=== PATIENT | female | born 1940 | race Caucasian/White ===

== ENCOUNTER 2020-01-15 12:45 | Outpatient (CLI) | payer MEDICARE, MEDICAID, SELFPAY ==
--- NOTE | 2020-01-15 12:56 | CT_ITS ---
WS: [id number] CT ABDOMEN PELVIS TECHNIQUE: Noncontrast CT of the abdomen and pelvis with coronal and sagittal reformatted images. CLINICAL INFORMATION: GENERALIZED ABDOMINAL PAIN, NAUSEA, GASTROENTERITIS/COLLITIS COMPARISON: CT September 22, 2017 DLP: 1143.[address] scans at [facility] use at least one of these dose optimization techniques: automat ed exposure control; mA and/or kV adjustment per patient size (includes targeted exams where dose is matched to clinical indication); or iterative reconstruction. FINDINGS: Prior postoperative changes cholecystectomy. Prior appendectomy. Noncontrast liver is normal. Normal GE junction. Tiny esophageal hiatal hernia. Proximal small bowel appears normal. Splenic artery calci fication. Noncontrast spleen is normal. Lung bases are well aerated. Right adrenal adenoma measuring 15 mm. Left adrenal gland is normal. No hydronephrosis. Right renal atrophy with small low-attenuation exophytic lesion may represent hemo rrhagic renal cyst but indeterminant. This is new or increased in size since 2018. This measures 7 mm . No obstructing renal or ureteral calculi. No hydronephrosis.A few tiny nonobstructing left calyceal tip calculi. Normal caliber abdominal aorta. Dense aortic calcification. Dense calcification involving the celiac and SMA origins. Bilateral proximal renal artery calcification. Infrarenal abdominal aorta and biilia c stents. Increasing calcified atheromatous disease at the proximal margin of the stent at the level the renal arteries with increasing stenosis. This can be further evaluated with CTA or angiography. No periaortic lymphadenopathy. No evidence of small or large bowel obstruction. Prior appendectomy cl ips. No inguinal lymphadenopathy. No pelvic lymphadenopathy. Slight anterolisthesis L4 on L5.Prior tubal ligation CT/CT abdomen pelvis wo con [id number] IMPRESSION: 1. No adenopathy in the abdomen or pelvis. 2. Right renal cortical atrophy with indeterminant 7 mm renal lesion may repre sent hemorrhagic renal cyst but technically indeterminate and new or increased in size since 2018. This can be followed up with ultrasound. 3. 15 mm right adrenal adenoma. 4. Advanced vascular calcification with moderate to severe narrowing of the ab dominal aorta at the level of the renal arteries just above the aortoiliac sten t. This appears increased. 5. Dense mesenteric artery and renal artery origin calcification. 6. Prior cholecystectomy and tubal ligation. 7. Small esophageal hiatal hernia.
== END 2020-01-15 12:46 | disposition home or self-care (01) ==
LOC: RADWPI 12:52
PROVIDERS: Family Provider Nurse Practitioner; PCP Nurse Practitioner; Visit Provider Nurse Practitioner
DX: R10.84 Generalized abdominal pain (principal); R11.0 Nausea; K52.9 Noninfective gastroenteritis and colitis, unspecified; N26.1 Atrophy of kidney (terminal); D35.01 Benign neoplasm of right adrenal gland; K44.9 Diaphragmatic hernia without obstruction or gangrene
CPT/HCPCS: 74176

== ENCOUNTER 2020-11-26 10:19 | Outpatient (CLI) | payer MEDICARE, MEDICAID, SELFPAY ==
[2020-11-26 11:56] LABS: Anion Gap 15.6 (5-19); Blood Urea Nitrogen 41 mg/dL (8-23); Calcium 7.3 mg/dL (8.5-10.5); Carbon Dioxide 21 mmol/L (22-29); Chloride 103 mmol/L (98-107); Glucose 81 mg/dL (65-115); Osmolality Calculated 287 mOsm/kg (285-295); Potassium 5.6 mmol/L (3.5-5.1); Sodium 134 mmol/L (136-145)
== END 2020-11-26 10:20 | disposition home or self-care (01) ==
PROVIDERS: PCP Nurse Practitioner; Visit Provider Family Medicine
DX: I50.43 Acute on chronic combined systolic (congestive) and diastolic (congestive) heart failure (principal)
CPT/HCPCS: 80048; 83880

== ENCOUNTER 2020-12-02 08:50 | Outpatient (CLI) | payer MEDICARE, MEDICAID, SELFPAY ==
[2020-12-02 09:40] LABS: Anion Gap 14.6 (5-19); Blood Urea Nitrogen 44 mg/dL (8-23); Calcium 7.3 mg/dL (8.5-10.5); Carbon Dioxide 21 mmol/L (22-29); Chloride 105 mmol/L (98-107); Glucose 79 mg/dL (65-115); Osmolality Calculated 292 mOsm/kg (285-295); Potassium 4.6 mmol/L (3.5-5.1); Sodium 136 mmol/L (136-145)
== END 2020-12-02 08:51 | disposition home or self-care (01) ==
LOC: LAB 08:51
PROVIDERS: PCP Nurse Practitioner; Visit Provider Family Medicine
DX: N18.30 Chronic kidney disease, stage 3 unspecified (principal)
CPT/HCPCS: 80048